=== PATIENT | female | born 1975 | race Caucasian/White ===

== ENCOUNTER 2019-09-20 17:12 | Emergency (ER) | payer BC ==
[2019-09-20 17:28] VITALS: BP 139/70; PULSE 71
--- NOTE | 2019-09-20 18:10 | EDM.PDOC ---
ED HPI GENERAL MEDICAL PROBLEM - General Chief Complaint: Upper Extremity Injury/Pain Stated Complaint: left shoulder weakness/pain Time Seen by Provider: 09/20/19 17:37 Source of Information: Reports: Patient History Limitations: Reports: No Limitations - History of Present Illness INITIAL COMMENTS - FREE TEXT/NARRATIVE: Patient comes to ER from [facility] after experiencing numbness/weak sensation in left shoulder and arm after trying to lift a tote that was unexpectedly heavy. Has been avoiding heavy lifting since undergoing surgery/discectomy last spring for herniated disc C5-6. Sensation at this time is similar to previous post-surgical flare that took several weeks to resolve per patient. 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 No changes in pain/sensation pattern. No fall/other acute injury. Describes shoulder as feeling tired. left shoulder Pain Score (Numeric/FACES): 6 - Related Data Allergies Allergy/AdvReac Type Severity Reaction Status Date / Time shrimp Allergy Anaphylactic Verified 09/20/19 17:28 Shock Sulfa (Sulfonamide Allergy Cannot Verified 05/21/16 12:12 Antibiotics) Remember Stimulants Allergy Tachycardia Uncoded 05/21/16 12:13 Home Meds: Home Meds Levothyroxine Sodium 1 tab PO DAILY 05/21/16 [History] buPROPion [buPROPion XL] 300 mg PO DAILY 05/21/16 [History] Cholecalciferol (Vitamin D3) [Vitamin D3] 4,000 unit PO DAILY 09/20/19 [History] ClonazePAM [KlonoPIN] 0.5 mg PO BID PRN 09/20/19 [History] Cyclobenzaprine [Flexeril] 5 mg PO TID PRN 09/20/19 [History] Magnesium Oxide [Magnesium] 500 mg PO DAILY #90 capsule 09/20/19 [Rx] Multivitamin [Daily Multiple Vitamin] 1 each PO DAILY 09/20/19 [History] buPROPion [Wellbutrin SR] 150 mg PO BEDTIME 09/20/19 [History] Past Medical History HEENT History: Reports: Impaired Vision Cardiovascular History: Reports: Angina Respiratory History: Reports: Asthma 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: Reports: GERD 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: Musculoskeletal History: Reports: Neck Pain, Chronic Psychiatric History: Reports: Anxiety, Depression - Past Surgical History HEENT Surgical History: Reports: Eye Surgery Musculoskeletal Surgical History: Reports: Other (See Below) Other Musculoskeletal Surgeries/Procedures:: ruptured disc with plate and screws /fusion Social & Family History - Tobacco Use Smoking Status *Q: Never Smoker Second Hand Smoke Exposure: No - Caffeine Use Caffeine Use: Reports: None - Recreational Drug Use Recreational Drug Use: No Review of Systems - Review of Systems Review Of Systems: Comprehensive ROS is negative, except as noted in HPI. ED EXAM, GENERAL - Physical Exam Exam: See Below Exam Limited By: No Limitations General Appearance: Alert, WD/WN, No Apparent Distress, Other (Patient keeps head in line with body, avoids moving neck. ) Eye Exam: Bilateral Eye: EOMI, PERRL Ears: Hearing Grossly Normal Nose: No: Nasal Deformity, Nasal Swelling, Nasal Drainage Throat/Mouth: Normal Lips, Normal Voice, No Airway Compromise Head: Atraumatic, Normocephalic Neck: Other (No focal tenderness identified with palpation of cervical spine and surrounding soft tissue. Patient unable to move neck without pain however. 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 ) Neurological: Alert, Normal Cognition, Normal Gait, Other (Subjective descrease acuity of sensation left mid arm/forearm/hand glove/stocking effect) Psychiatric: Anxious (mild) Skin Exam: Warm, Dry, Intact, Normal Color Course - Vital Signs Last Recorded V/S: Last Vital Signs Temp 36.6 C 09/20/19 17:14 Pulse 71 09/20/19 17:14 Resp 12 09/20/19 17:14 BP 139/70 09/20/19 17:14 Pulse Ox 100 09/20/19 17:14 - Orders/Labs/Meds Meds: Medications Discontinued Medications Generic Name Dose Route Start Last Admin Trade Name Freq PRN Reason Stop Dose Admin Ketorolac Tromethamine 60 mg 09/20/19 18:04 Toradol IM 09/20/19 18:05 ONETIME ONE - Re-Assessments/Exams Free Text/Narrative Re-Assessment/Exam: Acute exacerbation of previous neck injury/radiculopathy. Will take the patient off duty for 72 hours and have her follow up with her primary provider on Thursday fore recheck. Further restrictions as needed at that time. Declined pain medications. Did receive Toradol IM. Recommended Magnesium to help with intermittent muscle spasms left side of neck/upper back that pt reported having intermittently. To follow up otherwise as needed PRN problems. Patient agreeable with plan. Departure - Departure Time of Disposition: 18:25 Disposition: Home, Self-Care 01 Condition: Good Clinical Impression: Paresthesia of left upper extremity - Discharge Information *PRESCRIPTION DRUG MONITORING PROGRAM REVIEWED*: Not Applicable *COPY OF PRESCRIPTION DRUG MONITORING REPORT IN PATIENT DERREK: Not Applicable Prescriptions: Magnesium Oxide [Magnesium] 500 mg PO DAILY #90 capsule Instructions: Shoulder Pain, Ketorolac injection Referrals: Timothy Esteban PA-C [Primary Care Provider] - Forms: ED Department Discharge Additional Instructions: No work for two days. Follow up with your primary provider on or Thursday for recheck and further restrictions if needed. Start Magnesium supplement, but avoid taking it within 2-3 hours of your thyroid medication as one can inhibit the absorption of the other. Try rubbing topical magnesium gel into sore areas of neck/shoulder if you have spasms/pain. You can also use the CBD balm in the same area. Avoid applying them at the exact same time. Ice/rest/gentle stretching and activity for the next 48 hours.
[2019-09-20] MEDS: Ketorolac 60 MG/2 ML SDV IM ONE (18:40)
== END 2019-09-20 18:45 | disposition home or self-care (01) ==
LOC: LL.ED 17:12
DX: R20.2 Paresthesia of skin (principal); F41.9 Anxiety disorder, unspecified; F32.9 Major depressive disorder, single episode, unspecified; Z79.899 Other long term (current) drug therapy; Z88.8 Allergy status to other drugs, medicaments and biological substances; Z88.2 Allergy status to sulfonamides; Z91.013 Allergy to seafood
CPT/HCPCS: 96372; 99284-25; J1885

== ENCOUNTER 2020-03-28 17:50 | Emergency (ER) | payer BC, OTHER ==
[2020-03-28 18:16] VITALS: BP 127/71; PULSE 72
--- NOTE | 2020-03-28 18:16 | EDM.PDOC ---
ED HPI GENERAL MEDICAL PROBLEM - General Chief Complaint: General Stated Complaint: pt states, "anxiety attack" Time Seen by Provider: 03/28/20 18:12 Source of Information: Reports: Patient History Limitations: Reports: No Limitations - History of Present Illness INITIAL COMMENTS - FREE TEXT/NARRATIVE: Pt sent from [facility] for concerns over not acting like usual self. Pt states she is fine and was just having a panic attack Upon arrival in ER, pt without complaint Pt has medication at home Onset: Today, Sudden Duration: Improving, Resolved Prior to Arrival Location: Reports: Generalized - Related Data Allergies Allergy/AdvReac Type Severity Reaction Status Date / Time shrimp Allergy Anaphylactic Verified 03/28/20 18:08 Shock Sulfa (Sulfonamide Allergy Cannot Verified 03/28/20 18:08 Antibiotics) Remember Stimulants Allergy Tachycardia Uncoded 03/28/20 18:08 Home Meds: Home Meds Levothyroxine Sodium 1 tab PO DAILY 05/21/16 [History] buPROPion [buPROPion XL] 300 mg PO DAILY 05/21/16 [History] Cholecalciferol (Vitamin D3) [Vitamin D3] 4,000 unit PO DAILY 09/20/19 [History] ClonazePAM [KlonoPIN] 0.5 mg PO BID PRN 09/20/19 [History] Cyclobenzaprine [Flexeril] 5 mg PO TID PRN 09/20/19 [History] Multivitamin [Daily Multiple Vitamin] 1 each PO DAILY 09/20/19 [History] buPROPion [Wellbutrin SR] 150 mg PO BEDTIME 09/20/19 [History] Non-Formulary Medication [NF Drug] 1 each PO ASDIRECTED 03/28/20 [History] Non-Formulary Medication [NF Drug] 1 each VAG ASDIRECTED 03/28/20 [History] Past Medical History HEENT History: Reports: Impaired Vision Cardiovascular History: Reports: Angina Respiratory History: Reports: Asthma 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: Musculoskeletal History: Reports: Neck Pain, Chronic Psychiatric History: Reports: Anxiety, Depression - Past Surgical History HEENT Surgical History: Reports: Eye Surgery Musculoskeletal Surgical History: Reports: Other (See Below) Other Musculoskeletal Surgeries/Procedures:: ruptured disc with plate and screws /fusion Social & Family History - Caffeine Use Caffeine Use: Reports: None ED ROS GENERAL - Review of Systems Review Of Systems: See Below Constitutional: Reports: No Symptoms HEENT: Reports: No Symptoms Respiratory: Reports: No Symptoms Cardiovascular: Reports: No Symptoms GI/Abdominal: Reports: No Symptoms Musculoskeletal: Reports: No Symptoms Skin: Reports: No Symptoms Neurological: Reports: No Symptoms Psychiatric: Reports: Anxiety ED EXAM, GENERAL - Physical Exam Exam: See Below Exam Limited By: No Limitations General Appearance: Alert, WD/WN, No Apparent Distress Throat/Mouth: Normal Oropharynx Neck: Supple Respiratory/Chest: Lungs Clear Cardiovascular: Regular Rate, Rhythm Extremities: Normal Inspection Neurological: Alert, Oriented, No Motor/Sensory Deficits Psychiatric: Normal Affect, Normal Mood Course - Vital Signs Last Recorded V/S: Last Vital Signs Temp 99 F 03/28/20 18:01 Pulse 75 03/28/20 18:01 Resp 15 03/28/20 18:01 BP 140/114 H 03/28/20 18:01 Pulse Ox 100 03/28/20 18:01 - Re-Assessments/Exams Free Text/Narrative Re-Assessment/Exam: 03/28/20 18:14 Pt stable in ER Departure - Departure Time of Disposition: 18:15 Disposition: Home, Self-Care 01 Clinical Impression: Acute anxiety - Discharge Information *PRESCRIPTION DRUG MONITORING PROGRAM REVIEWED*: Not Applicable *COPY OF PRESCRIPTION DRUG MONITORING REPORT IN PATIENT DERREK: Not Applicable Referrals: Dorene Gurrola [employer] [facility] [Primary Care Provider] - Additional Instructions: Follow up in clinic Sepsis Event Note (ED) - Evaluation Sepsis Screening Result: No Definite Risk - Focused Exam Vital Signs: Vital Signs Temp Pulse Resp BP Pulse Ox 03/28/20 18:01 99 F 75 15 140/114 H 100
== END 2020-03-28 18:35 | disposition home or self-care (01) ==
LOC: LL.ED 17:50
DX: F41.9 Anxiety disorder, unspecified (principal); F32.9 Major depressive disorder, single episode, unspecified; Z88.2 Allergy status to sulfonamides; Z91.013 Allergy to seafood; Z88.8 Allergy status to other drugs, medicaments and biological substances; Z79.899 Other long term (current) drug therapy
CPT/HCPCS: 99283